=== PATIENT | male | born 1965 | race African-American/Black ===

== ENCOUNTER → 2016-09-16 | Day surgery (SDC) | payer OTHER ==
[~2016-09-16] MED LIST: ALBUTEROL17 GM INH; ALBUTEROL20 ml INH; AMOXICILLIN PO; COREG CR 10MG10 MG PO; COREG3.125 M1; ERYC250 MG PO; FIORICET 50-321 EACH PO; REMERON15 MG PO; SPIRIVA RESPIMAT4 G1; SYMBICORT INH; VENTOLIN; VICODIN 5/500 T1 TAB PO; VITAMIN D1000 UNIT PO
--- NOTE | ~2016-09-16 | OR ---
Unit #: [id number] #: [id number] Patient: OFELIA DENISE [id number] [address] [place], [place] [address] [id number] O MR#: [id number] NAME: OFELIA DENISE. ROOM: Date of Procedure: 09/16/2016 Admission Date: 09/16/2016 Surgeon: Malik Scott M.D. : 1965 Attending Physician: Malik Scott M.D. Primary Care Physician: Shawn Dubon A.P.R.N. OPERATIVE REPORT PREOPERATIVE DIAGNOSIS Enlarging sebaceous cyst, right lateral face. POSTOPERATIVE DIAGNOSIS Enlarging sebaceous cyst, right lateral face. PROCEDURE PERFORMED Excision of enlarging sebaceous cyst, right lateral face 1 cm with layered closure. ANESTHESIA 1% Xylocaine plain local anesthesia. FINDINGS The lesion was consistent with sebaceous cyst and was completely removed. SPECIMENS Sent to Pathology. COMPLICATIONS None apparent. CONDITION The patient tolerated the procedure well. INDICATIONS FOR PROCEDURE The patient is a 51-year-old black male, who has enlarging subcutaneous mass just lateral to the lateral aspect of his right eye. It has increased in size, increasingly bothersome and worrisome. He presents at this time for excision for pathologic diagnosis and treatment operation. DESCRIPTION OF PROCEDURE After obtaining informed consent, the patient was brought to the operating room and after sterile prep and drape, had the area anesthetized with 1% Xylocaine plain local anesthesia. An elliptical incision was made over the top of the lesion removing the overlying skin. Dissection was taken down to the level of the lesion and it was excised circumferentially with scissors and then sent to Pathology. Hemostasis was obtained with the Bovie. The wound was irrigated. The deep tissues were reapproximated with a 4-0 Vicryl suture and the skin was closed with a running 5-0 nylon. An occlusive dressing of Mastisol and Steri-Strips was applied. Needle counts, sponge counts, and instrument counts were all correct as reported Unit #: [id number] #: [id number] Patient: OFELIA DENISE by the scrub nurse x2. The patient went from the operating room to the recovery room in stable condition. Dictated by... Alejandro Glover/malick TD: 09/16/2016 09:36 JOB #: [id number] CC: [facility] OPERATIVE REPORT X Malik Scott MD X PROCEDURE OPERATIVE NOTE
== END | disposition home or self-care (01) ==
LOC: CSUR 05:49
DX: L72.3 Sebaceous cyst (principal); J44.9 Chronic obstructive pulmonary disease, unspecified; I42.9 Cardiomyopathy, unspecified; I10 Essential (primary) hypertension; R00.2 Palpitations; I38 Endocarditis, valve unspecified; M54.9 Dorsalgia, unspecified; Z79.899 Other long term (current) drug therapy; F17.200 Nicotine dependence, unspecified, uncomplicated; Z87.440 Personal history of urinary (tract) infections; Z80.1 Family history of malignant neoplasm of trachea, bronchus and lung; Z80.0 Family history of malignant neoplasm of digestive organs; Z82.3 Family history of stroke
CPT/HCPCS: 88304

== ENCOUNTER → 2017-02-07 | Outpatient (CLI) | payer OTHER ==
--- NOTE | ~2017-02-07 | TM ---
[id number] NAME: OFELIA DENISE MR#: [id number] PROCEDURE PERFORMED Treadmill stress test. DESCRIPTION Resting heart rate is 60. Resting blood pressure is 168/92 mmHg. Baseline EKG shows normal sinus rhythm. No significant ST-T wave changes. PROCEDURE The patient was made to exercise on a standard Christopher protocol. Total exercise time is 5 minutes and 47 seconds, completing 2 minutes and 47 seconds of stage 2 on a standard Christopher protocol. Test stopped because of shortness of breath. No complaints of chest pain. Maximal heart rate obtained is 145, which is 86% of maximum predicted heart rate. Maximal blood pressure obtained is 169/[address]-T wave changes suggestive of ischemia. No arrhythmias noted. CONCLUSION 1. Poor exercise tolerance for age. 2. There is no clinical, hemodynamic or EKG evidence of ischemia at [id number] workload (86% of maximum predicted heart rate, 7 METs). 3. Normal heart rate and blood pressure response. 4. Normal regular treadmill stress test with poor baseline exercise tolerance for age. Dictated by...
== END | disposition home or self-care (01) ==
LOC: CEKG 08:00
DX: R07.9 Chest pain, unspecified (principal)
CPT/HCPCS: 93017

== ENCOUNTER → 2017-02-20 | Outpatient (CLI) | payer OTHER ==
--- NOTE | ~2017-02-20 | ST ---
Unit #: [id number] #: [id number] Patient: OFELIA DENISE [id number] [address] [address] [id number] O MR#: [id number] NAME: OFELIA DENISE : 1965 SEX: M STUDY DATE/TIME: 02/20/2017 UNIT: [facility] ROOM: STUDY DESCRIPTION: Attending Physician: Nigel Cheung M.D. Referring Physician: Nigel Cheung M.D. Primary Care Physician: Shawn Dubon A.P.R.N. CARDIOLOGY REPORT EXAM Walking Lexiscan Cardiolite stress test. FINDINGS Baseline EKG: Sinus bradycardia, heart rate 57 beats per minute, Q waves noted in septal leads, poor R wave progression, mild left ventricular hypertrophy, left atrial abnormality. PROCEDURE Lexiscan is a 4-minute test with Lexiscan being injected within the first minute followed by Cardiolite. EKG during the test was equivocal to baseline. No acute ischemic changes. The patient had no complaints of chest pain, palpitations, or dizziness. Had increased shortness of breath and fatigueness which resolved in recovery phase. Maximum heart rate response was 129 beats per minute with a maximum blood pressure response of 164/88 mmHg. It is noted that patient did not take his blood pressure medication this morning, will take it as soon as possible. Cardiolite was injected after Lexiscan within the first minute of the test. Radionuclide tests pending. Please correlate with nuclear images. Dictated by... Baltazar MillerPNima for Alejandro Rodriguez/elke TD: 02/20/2017 12:27 JOB #: [id number] CARDIOLOGY REPORT Page 1 of 1 X Pricilla Zamorano APRN CARDIOLOGY REPORT
--- NOTE | ~2017-02-20 | TH ---
Unit #: [id number] #: [id number] Patient: OFELIA DENISE [id number] [address] [address] [id number] O MR#: [id number] NAME: OFELIA DENISE. : 1965 SEX: M STUDY DATE/TIME: 02/20/2017 UNIT: [facility] ROOM: STUDY DESCRIPTION: Attending Physician: Nigel Cheung M.D. Referring Physician: Nigel Cheung M.D. Primary Care Physician: Shawn Dubon A.P.R.N. CARDIOLOGY REPORT EXAM Lexiscan Cardiolite stress test, nuclear portion. PROCEDURE Using technetium 99m labeled Cardiolite, rest and stress SPECT images were obtained. Multiple SPECT images were obtained in various views including horizontal and vertical long axis and short axis views of the left ventricle. Images were obtained by gated SPECT method. The patient was administered 10.18 mCi of Cardiolite at rest. The patient was administered 32.9 mCi of Cardiolite after Lexiscan infusion was completed. On the stress images, there is a medium-sized area of moderate decreased isotope activity inferiorly. The rest images also show a medium-sized area of moderate decreased isotope activity inferiorly. Comparing rest and stress images, there is suspicion for a medium-sized area of fixed defect suspicious for inferior wall myocardial infarction. The left ventricular ejection fraction is calculated to be 51%. There is inferior wall hypokinesis seen. CONCLUSION 1. Suspicion for medium-sized area of inferior wall myocardial infarction. 2. No obvious stress-induced ischemia noted. 3. The left ventricular ejection fraction is calculated to be 51%. 4. There is inferior wall hypokinesis noted. 5. Clinical correlation is requested. Dictated by... Alejandro Rodriguez TD: 02/20/2017 13:54 JOB #: [id number] Unit #: [id number] #: [id number] Patient: OFELIA DENISE CARDIOLOGY REPORT Page 1 of 1 X Socorro Candelaria MD <ELECTRONICALLY SIGNED> 02/22/17 1421 CARDIOLOGY REPORT
== END | disposition home or self-care (01) ==
LOC: CNUC 08:22
DX: I42.9 Cardiomyopathy, unspecified (principal); R07.9 Chest pain, unspecified
CPT/HCPCS: 78452; 93017; A9500; J2785

== ENCOUNTER 2017-02-25 17:33 | Emergency (ER) | payer OTHER ==
[~2017-02-25] VITALS: Ht 172.7 cm; Wt 56.7 kg
--- NOTE | ~2017-02-25 | EKG ---
PATIENT: OFELIA DENISE UNIT #: [id number] Ventricular Rate: 60 BPM Atrial Rate: 60 BPM P-R Interval: 156 ms QRS Duration: 88 ms Q-T Interval: 390 ms QTC Calculation(Bezet): 390 ms P Erin: 81 degrees Calculated R Erin: -41 degrees Calculated T Erin: 63 degrees Diagnosis Line: Normal sinus rhythm Diagnosis Line: Left axis deviation Diagnosis Line: Voltage criteria for left ventricular hypertrophy Diagnosis Line: Abnormal ECG Diagnosis Line: When compared with ECG of 02-DEC-2012 07:32, Diagnosis Line: Vent. rate has decreased BY 45 BPM Diagnosis Line: T wave amplitude has increased in Lateral leads Diagnosis Line: QT has shortened Diagnosis Line: Confirmed by MELO MONZON MD ([id number]) on Diagnosis Line: 02/27/2017 7:11:52 AM INTERPRETING MD: ANTOINETTE
--- NOTE | ~2017-02-25 | CR72 ---
[facility] A Service of [facility] RADIOLOGY TEXT RESULTS PATIENT: OFELIA DENISE LOCATION: [facility] : [birth year] UNIT #: [id number] AGE: [address]: Gamaliel Gage DO SEX: M ORDER DR: [id number] [facility] [address] [facility]. [place], [place] [address] [id number] MR#: [id number] Acc #: [id number] NAME: OFELIA DENISE : 1965 SEX: M STUDY DATE/TIME: 02/25/2017 18:46 UNIT: [facility] ROOM: STUDY DESCRIPTION: CR Chest Single View Portable Attending Physician: Gamaliel Gage D.O. Ordering Physician: Lobito Torres M.D. Primary Care Physician: Shawn Dubon A.P.R.N. MEDICAL IMAGING REPORT This report is preliminary unless electronic signature is present EXAM Portable chest x-ray 02/25/2017. HISTORY Dyspnea. 4 days duration. No known injury. COMPARISON 12/02/2012. FINDINGS AP radiograph of the chest is presented. There is rather marked hyperinflation of the lungs suggesting underlying chronic airway disease. Correlate with history and risk factors. Heart and mediastinum are normal in size and contour. There is no evidence of acute infectious or inflammatory disease, pleural effusion or pneumothorax. No suspicious nodule. No acute-appearing bony abnormality. IMPRESSION 1. No acute pulmonary disease, pleural effusion or pneumothorax. No suspicious nodule. There is rather marked hyperinflation of the lungs. More pronounced than on prior examination and suggesting underlying chronic airway disease. Correlate with history and risk factors. 2. Cardiomediastinal contours normal. Dictated by... Yassine Braden M.D. THIS IS AN ELECTRONICALLY VERIFIED REPORT Yassine Braden M.D. at 02/26/2017 6:04 PM JSK/bd [facility] A Service of [facility] RADIOLOGY TEXT RESULTS PATIENT: OFELIA DENISE LOCATION: [facility] : 63 UNIT #: [id number] AGE: [address]: Gamaliel Gage DO SEX: M ORDER DR: TD: 02/26/2017 08:06 JOB #: [id number] MEDICAL IMAGING REPORT Page 1 of 1 COPY
[2017-02-25 19:42] LABS: BASOPHIL% 0.7 % (0-2.5); EOSINOPHIL# 0.1 X10e3 (0-0.7); EOSINOPHIL% 2.2 % (0.0-7.0); HEMATOCRIT 41.9 % (38.0-50.0); HEMOGLOBIN 14.2 gm/dL (13.0-16.0); LYMPHOCYTE# 2.9 X10e3 (1.0-3.5); LYMPHOCYTE% 45.1 % (17.0-45.0); MEAN CORPUSCULAR HEMOGLOBIN 34.5 PG (28-34); MEAN CORPUSCULAR HGB CONC 33.9 g/dL (30-36); MEAN PLATELET VOLUME 7.5 FL (6.5-11.5); MONOCYTE# 0.6 X10e3 (0-1.0); MONOCYTE% 8.9 % (3.0-12.0); NEUTROPHIL# 2.7 X10e3 (1.5-7.1); NEUTROPHIL% 43.1 % (40-75); PLATELET COUNT 254 X10e3 (140-420); WHITE BLOOD COUNT 6.4 X10e3 (4.0-10.5)
[2017-02-25 19:45] LABS: DIFF IND NO
[2017-02-25 20:27] LABS: ALBUMIN SERUM 4.4 g/dL (3.5-5.0); BILIRUBIN, DIRECT 0.1 mg/dL (0.0-0.2); BILIRUBIN,INDIRECT 0.6 mg/dL (0.0-0.9); BILIRUBIN,TOTAL 0.7 mg/dL (0.2-2.0); BUN/CREATININE RATIO 10.9; CALCIUM SERUM 8.8 mg/dL (8.4-10.2); CREATININE SERUM 1.1 mg/dL (0.6-1.4); PROTEIN TOTAL SERUM 7.8 g/dL (6.0-8.3)
== END 2017-02-25 22:30 | disposition home or self-care (01) ==
LOC: CED 17:33
DX: J44.9 Chronic obstructive pulmonary disease, unspecified (principal); F17.200 Nicotine dependence, unspecified, uncomplicated; Z98.890 Other specified postprocedural states; Z79.899 Other long term (current) drug therapy
CPT/HCPCS: 36415; 71010; 80048; 80076; 85025; 93005; 96374; 99285; J2930